=== PATIENT | male | born 1985 | race Caucasian/White ===

== ENCOUNTER 2017-02-08 20:47 | Emergency (ER) | payer BC, OTHER ==
[~2017-02-08] VITALS: Ht 185.4 cm; Wt 68.0 kg
[~2017-02-08 20:47] MED LIST: CEPH500C PO; HYDR-707 PO
[2017-02-08] MEDS ORDERED: TETANUS,DIPTH,PERTUSS P/F (BOOSTRIX) 0.5 ML VIAL IM ONE (21:45)
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
[2017-02-08] MEDS ORDERED: AMOX-358 PO (22:11)
[2017-02-08] MEDS ORDERED: HYDR-3812 PO (22:14)
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
[2017-02-08 22:28] VITALS: BP 137/88
== END 2017-02-08 22:28 | disposition home or self-care (01) ==
LOC: EDUNIT# 20:47 → ER 20:50
DX: S91.312A Laceration without foreign body, left foot, initial encounter (principal); F17.210 Nicotine dependence, cigarettes, uncomplicated; Z23 Encounter for immunization; Z87.828 Personal history of other (healed) physical injury and trauma; W26.0XXA Contact with knife, initial encounter
CPT/HCPCS: 73630; 90715

== ENCOUNTER 2017-05-19 18:26 | Emergency (ER) | payer BC ==
[~2017-05-19] VITALS: Ht 185.4 cm; Wt 63.5 kg
[~2017-05-19 18:26] MED LIST changes: +ACHD5005 PO; +AMOX-358 PO
--- NOTE | 2017-05-19 18:38 | ED Upper Extremity ---
General Chief Complaint: Laceration Stated Complaint: L FINGER LAC Source: patient Exam Limitations: no limitations History of Present Illness Date Seen by Provider: May 19, 2017 Time Seen by Provider: 18:35 Initial Comments To ER with a laceration over the dorsal aspect second knuckle left hand. This occurred just prior to arrival he was washing dishes and one of the glasses broke. Tetanus is up-to-date within the past 5 years. Onset: just prior to arrival Severity: moderate Pain/Injury Location: left 2nd finger Allergies and Home Medications Allergies Coded Allergies: No Known Allergies (Unverified Allergy, Mild, 07/01/09) Home Medications Amoxicillin/Potassium Clav 1 Each Tablet, 1 EACH PO BID Prescribed by: BRAXTON GONSALVES on 02/08/17 221 Cephalexin Monohydrate 500 Mg Capsule, 1 EACH PO QID Prescribed by: DWAYNE DUNCAN MD on 07/02/09 0225 Hydrocodone Bit/Acetaminophen 1 Each Tablet, 1 EACH PO Q 4 - 6 HR PRN Prescribed by: DWAYNE DUNCAN MD on 07/01/09 2355 Hydrocodone Bit/Acetaminophen 1 Each Tablet, 1 EACH PO Q6H PRN for BREAKTHROUGH PAIN Prescribed by: BRAXTON GONSALVES on 02/08/174 Constitutional: see HPI EENTM: see HPI Respiratory: no symptoms reported Cardiovascular: no symptoms reported Genitourinary: no symptoms reported Musculoskeletal: see HPI Skin: see HPI Psychiatric/Neurological: No Symptoms Reported Past Kptqglz-Jvaecp-Ckkhxk Hx Patient Social History Type Used: Cigarettes Recent Foreign Travel: No Contact w/Someone Who Travel: No Recent Hopitalizations: No Surgeries History of Surgeries: No Respiratory History of Respiratory Disorde: No Cardiovascular History of Cardiac Disorders: No Neurological History of Neurological Disord: No Genitourinary History of Genitourinary Disor: No Gastrointestinal History of Gastrointestinal Di: No Musculoskeletal History of Musculoskeletal Dis: No Endocrine History of Endocrine Disorders: No HEENT History of HEENT Disorders: No Cancer History of Cancer: No Psychosocial History of Psychiatric Problem: No Integumentary History of Skin or Integumenta: No Blood Transfusions History of Blood Disorders: No Physical Exam Vital Signs Vital Signs - First Documented 05/19/17 18:32 Temp 98.2 Pulse 94 Resp 18 B/P (MAP) 128/78 (95) Pulse Ox 97 O2 Delivery Room Air Capillary Refill : General Appearance: WD/WN, no apparent distress HEENT: PERRL/EOMI, normal ENT inspection Neck: non-tender, full range of motion Respiratory: no respiratory distress, no accessory muscle use Shoulder: normal inspection, non-tender Elbow/Forearm: normal inspection, non-tender, Left Wrist: Yes normal inspection, Yes non-tender Hand: normal inspection, non-tender, Left, laceration (there is a 1.5 cm laceration over the dorsal aspect MCP joint left pointer finger. Depth is to the subcutaneous cutaneous tissue, there is no evidence of extensor tendon injury. He remains distally neurovascularly intact.) Neurologic/Psychiatric: alert, normal mood/affect, oriented x 3 Skin: normal color, warm/dry Laceration Repair : Wound Location: Upper Extremities Other Wound Location Left hand Wound Length (cm): 1.5 Wound's Depth, Shape: superficial Wound Explored: clean Irrigated w/ Saline (ccs): 30 Suture: Prolene Suture Size: 4-0 Number of Sutures: 3 Progress Laceration was cleaned and irrigated with chlorhexidine and normal saline. It was then anesthetized with 2 mL of lidocaine without epinephrine. 3 simple interrupted sutures sutures were placed. The suture was 5-0 Prolene. Progress/Results/Core Measures Results/Orders Vital Signs/I&O Vital Sign - Last 12Hours 05/19/17 05/19/17 18:32 18:43 Temp 98.2 98.2 Pulse 94 94 Resp 18 18 B/P (MAP) 128/78 (95) 128/78 (95) Pulse Ox 97 97 O2 Delivery Room Air Departure Impression Impression: Primary Impression: Hand laceration Disposition: 01 HOME, SELF-CARE Condition: Stable Departure-Patient Inst. Decision time for Depature: 18:37 Referrals: KATIE NEWELL MD (PCP/Family) Primary Care Physician Patient Instructions: Laceration Repair With Stitches (DC) Add. Discharge Instructions: 1. Return to ER in 7-10 days to have the stitches removed. Keep this wound clean dry and covered until tomorrow. At that point you may allow water to run over it in the shower but do not soak it in water such as a hot tub, bath tub, swimming pool or dish sink to the stitches have been removed. Return to ER before the 7-10 day nicholas of infection such as redness or swelling or pus like drainage. TSERING BAILEY APRN May 19, 2017 18:38
[2017-05-19 18:43] VITALS: BP 128/78
== END 2017-05-19 18:49 | disposition home or self-care (01) ==
LOC: EDUNIT# 18:26 → ER 18:27
DX: S61.211A Laceration without foreign body of left index finger without damage to nail, initial encounter (principal); Y28.0XXA Contact with sharp glass, undetermined intent, initial encounter
CPT/HCPCS: 99284

== ENCOUNTER 2018-10-29 02:36 | Emergency (ER) | payer BC ==
[~2018-10-29] VITALS: Ht 185.4 cm; Wt 63.5 kg
--- OUTSIDE RECORDS SUMMARY | 2018-10-29 02:43 | XMS REPORT ---
Author Author SANDEEP THOMPSON Organization [facility] Address [address] [place] [address] Care Team Providers [employer] Chief Creative Officer Name Role Phone SANDEEP THOMPSON Unavailable PROBLEMS Type Condition ICD9-CM Code JLQ39-GG Code Onset Dates Condition Status SNOMED Code Problem [place] J30.1 Active [id number] ALLERGIES No Known Allergies ENCOUNTERS Encounter Location Date Diagnosis [facility] [address] [facility] [id number] [place] [address] Oct, [place] J30.1 IMMUNIZATIONS No Known Immunizations SOCIAL HISTORY Never Assessed REASON FOR VISIT sore throat, chest congestion, nasal drainage down the back of his throat. been sick for one day. kbullhernan PLAN OF CARE Activity Details Follow Up prn Reason: VITAL SIGNS Height 73 in 2017-10-30 Weight 142.0 lbs 2017-10-30 Temperature 98.3 degrees Fahrenheit 2017-10-30 Heart Rate 80 bpm 2017-10-30 Respiratory Rate 20 2017-10-30 BMI 18.73 kg/m2 2017-10-30 Blood pressure systolic 112 mmHg 2017-10-30 Blood pressure diastolic 70 mmHg 2017-10-30 MEDICATIONS Medication Instructions Dosage Frequency Start Date End Date Duration Status Cough Drops Menthol - Active NyQuil Active RESULTS No Results PROCEDURES No Known procedures INSTRUCTIONS MEDICATIONS ADMINISTERED No Known Medications
[2018-10-29] MEDS ORDERED: LIDOCAINE 2% VISCOUS 15 ML UDC PO ONE (03:00)
[2018-10-29] MEDS ORDERED: KETOROLAC 30 MG/ML VIAL IM ONE (03:00)
[2018-10-29] MEDS ORDERED: AMOX500C2 PO (03:03)
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
[2018-10-29 03:09] VITALS: BP 111/74
== END 2018-10-29 03:09 | disposition home or self-care (01) ==
LOC: EDUNIT# 02:36 → ER 02:39
DX: K08.89 Other specified disorders of teeth and supporting structures (principal); F17.210 Nicotine dependence, cigarettes, uncomplicated; W22.8XXA Striking against or struck by other objects, initial encounter
CPT/HCPCS: 99284

== ENCOUNTER 2021-07-05 19:32 | Emergency (ER) | payer BC ==
[~2021-07-05] VITALS: Ht 182 cm; Wt 66.0 kg
[~2021-07-05 19:32] MED LIST changes: +AMOX500C2 PO
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
[2021-07-05 20:44] VITALS: BP 132/76
== END 2021-07-05 20:47 | disposition home or self-care (01) ==
LOC: EDUNIT# 19:32 → ER 19:33
DX: S90.01XA Contusion of right ankle, initial encounter (principal); F17.290 Nicotine dependence, other tobacco product, uncomplicated; W01.198A Fall on same level from slipping, tripping and stumbling with subsequent striking against other object, initial encounter
CPT/HCPCS: 73610

== ENCOUNTER 2021-10-24 18:08 | Emergency (ER) | payer BC ==
[~2021-10-24] VITALS: Ht 185.5 cm; Wt 66.8 kg
--- NOTE | 2021-10-24 18:59 | ED Chest Pain ---
General Chief Complaint: Chest Pain Stated Complaint: L SIDE PAIN WITH BREATHING,COUGH,FEVER Nursing Triage Note: PT AMB TO ED BY POV WITH C/O CP, CONGESTION, COUGH, SOB. 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 DENIES N/V/D. Source: patient Exam Limitations: no limitations History of Present Illness Date Seen by Provider: Oct 24, 2021 Time Seen by Provider: 18:55 Initial Comments Patient presents for evaluation of chest congestion, sinus pain and left sided chest pain. 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 He denies nausea, vomiting, diarrhea. Severity/Quality: moderate Location: substernal Radiation: no radiation Activities at Onset: activity Prior CP/Workup: no prior chest pain Allergies and Home Medications Allergies Coded Allergies: No Known Allergies (Unverified Allergy, Mild, 07/01/09) Patient Home Medication List Home Medication List Reviewed: Yes Amoxicillin (Amoxicillin) 500 Mg Capsule, 500 MG PO TID Prescribed by: BRAXTON GONSALVES on 10/29/18 0303 Amoxicillin/Potassium Clav (Augmentin 875-125 Tablet) 1 Each Tablet, 1 EACH PO BID Prescribed by: BRAXTON GONSALVES on 02/08/17 2211 Cephalexin Monohydrate (Cephalexin) 500 Mg Capsule, 1 EACH PO QID Prescribed by: DWAYNE DUNCAN MD on 07/02/09 0225 Hydrocodone Bit/Acetaminophen (Lortab 5-500 Tablet) 1 Each Tablet, 1 EACH PO Q 4 - 6 HR PRN Prescribed by: DWAYNE DUNCAN MD on 07/01/09 2355 Hydrocodone Bit/Acetaminophen (Lortab 5 Mg Tablet) 1 Each Tablet, 1 EACH PO Q6H PRN for BREAKTHROUGH PAIN Prescribed by: BRAXTON GONSALVES on 02/08/17 2214 Review of Systems Review of Systems Constitutional: malaise EENTM: Nose Congestion Respiratory: Cough Cardiovascular: No Symptoms Reported Gastrointestinal: No Symptoms Reported Genitourinary: No Symptoms Reported Musculoskeletal: no symptoms reported Skin: no symptoms reported Past Cmyvrzb-Odffwj-Gvtzgw Hx Immunizations Up To Date Tetanus Booster (TDap): Less than 5yrs PED Vaccines UTD: Yes Seasonal Allergies Seasonal Allergies: No Past Medical History Surgeries: No Respiratory: No Cardiac: No Neurological: No Genitourinary: No Gastrointestinal: No Musculoskeletal: No Endocrine: No HEENT: No Cancer: No Psychosocial: No Integumentary: No Blood Disorders: No Physical Exam Vital Signs Vital Signs - First Documented 10/24/21 18:40 Temp 37.1 Pulse 86 Resp 18 B/P (MAP) 124/76 (92) Pulse Ox 97 O2 Delivery Room Air Capillary Refill : Less Than 3 Seconds Height, Weight, BMI Height: 6'1.00" Weight: 140lbs. 0oz. 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 Skin: Normal Color, Warm/Dry Procedures/Interventions Suture Size: 4-0 Progress/Results/Core Measures Results/Orders Lab Results Laboratory Tests Test 10/24/21 18:35 10/24/21 19:20 Range/Units White Blood Count 7.4 4.3-11.0 10^3/uL Red Blood Count 4.24 L 4.30-5.52 10^6/uL Hemoglobin 13.4 13.3-17.7 g/dL Hematocrit 39 L 40-54 % Mean Corpuscular Volume 92 80-99 fL Mean Corpuscular Hemoglobin 32 25-34 pg Mean Corpuscular Hemoglobin Concent 34 32-36 g/dL Red Cell Distribution Width 13.2 10.0-14.5 % Platelet Count 265 130-400 10^3/uL Mean Platelet Volume 9.5 9.0-12.2 fL Immature Granulocyte % (Auto) 0 % Neutrophils (%) (Auto) 49 42-75 % Lymphocytes (%) (Auto) 41 12-44 % Monocytes (%) (Auto) 8 0-12 % Eosinophils (%) (Auto) 1 0-10 % Basophils (%) (Auto) 1 0-10 % Neutrophils # (Auto) 3.7 1.8-7.8 10^3/uL Lymphocytes # (Auto) 3.0 1.0-4.0 10^3/uL Monocytes # (Auto) 0.6 0.0-1.0 10^3/uL Eosinophils # (Auto) 0.1 0.0-0.3 10^3/uL Basophils # (Auto) 0.0 0.0-0.1 10^3/uL Immature Granulocyte # (Auto) 0.0 0.0-0.1 10^3/uL Sodium Level 142 135-145 MMOL/L Potassium Level 3.7 3.6-5.0 MMOL/L Chloride Level 108 H 98-107 MMOL/L Carbon Dioxide Level 23 21-32 MMOL/L Anion Gap 11 5-14 MMOL/L Blood Urea Nitrogen 11 7-18 MG/DL Creatinine 0.84 0.60-1.30 MG/DL Estimat Glomerular Filtration Rate 117 BUN/Creatinine Ratio 13 Glucose Level 92 70-105 MG/DL Calcium Level 9.1 8.5-10.1 MG/DL Corrected Calcium 8.7 8.5-10.1 MG/DL Total Bilirubin 0.9 0.1-1.0 MG/DL Aspartate Amino Transf (AST/SGOT) 21 5-34 U/L Alanine Aminotransferase (ALT/SGPT) 17 0-55 U/L Alkaline Phosphatase 50 40-136 U/L Troponin I < 0.028 <0.028 NG/ML Total Protein 7.1 6.4-8.2 GM/DL Albumin 4.5 3.2-4.5 GM/DL Influenza Type A (RT-PCR) Not Detected Not Detecte Influenza Type B (RT-PCR) Not Detected Not Detecte SARS-CoV-2 RNA (RT-PCR) Not Detected Not Detecte My Orders Orders - STACEY RODRIGUEZ Chest Pa/Lat (2 View) (10/24/21 18:44) Ed Iv/Invasive Line Start (10/24/21 18:53) Cbc With Automated Diff (10/24/21 18:53) Comprehensive Metabolic Panel (10/24/21 18:53) Troponin I Maged (10/24/21 18:53) Covid 19 Inhouse Test (10/24/21 18:53) Influenza A And B By Pcr (10/24/21 18:53) Vital Signs/I&O 10/24/21 18:40 Temp 37.1 Pulse 86 Resp 18 B/P (MAP) 124/76 (92) Pulse Ox 97 O2 Delivery Room Air Blood Pressure Mean: 92 Departure Communication (Admissions) Patient is afebrile, nontoxic and in no distress. His chest x-ray and lab work is reassuring. I do not feel that this is an acute cardiac event. No evidence or suspicion of PE, pneumothorax, hemothorax. 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 Impression Primary Impression: Intercostal muscle strain Disposition: 01 HOME, SELF-CARE Condition: Stable Departure-Patient Inst. Decision time for Depature: 20:00 Referrals: KATIE NEWELL MD (PCP/Family) Primary Care Physician Patient Instructions: Muscle Strain (DC) Scripts Diclofenac Sodium (Diclofenac Sodium) 75 Mg Tablet. 75 MG PO BID for 7 Days, #14 TAB Prov: STACEY RODRIGUEZ 10/24/21 Work/School Note: Work Release Form Date Seen in the Emergency Department: Oct 24, 2021 Return to Work: Oct 26, 2021 Restrictions: No Restrictions STACEY RODRIGUEZ Oct 24, 2021 18:59
[2021-10-24 19:00] LABS: BASOPHILS % (AUTO) 1 % (0-10); EOSINOPHILS # (AUTO) 0.1 10^3/uL (0.0-0.3); EOSINOPHILS % (AUTO) 1 % (0-10); HEMATOCRIT 39 % (40-54); HEMOGLOBIN 13.4 g/dL (13.3-17.7); LYMPHOCYTES % (AUTO) 41 % (12-44); MEAN CORPUSCULAR HEMOGLOBIN 32 pg (25-34); MEAN CORPUSCULAR HGB CONC 34 g/dL (32-36); MEAN CORPUSCULAR VOLUME 92 fL (80-99); MEAN PLATELET VOLUME 9.5 fL (9.0-12.2); MONOCYTES # (AUTO) 0.6 10^3/uL (0.0-1.0); MONOCYTES % (AUTO) 8 % (0-12); NEUTROPHILS # (AUTO) 3.7 10^3/uL (1.8-7.8); NEUTROPHILS % (AUTO) 49 % (42-75); PLATELET COUNT 265 10^3/uL (130-400); WHITE BLOOD COUNT 7.4 10^3/uL (4.3-11.0)
[2021-10-24 19:03] LABS: ALBUMIN 4.5 GM/DL (3.2-4.5); CHLORIDE 108 MMOL/L (98-107); POTASSIUM 3.7 MMOL/L (3.6-5.0); SODIUM 142 MMOL/L (135-145)
[2021-10-24 19:04] LABS: CALCIUM 9.1 MG/DL (8.5-10.1)
[2021-10-24 19:05] LABS: GLUCOSE 92 MG/DL (70-105); TOTAL PROTEIN 7.1 GM/DL (6.4-8.2)
[2021-10-24 19:06] LABS: CARBON DIOXIDE 23 MMOL/L (21-32)
[2021-10-24 19:07] LABS: BILIRUBIN,TOTAL 0.9 MG/DL (0.1-1.0)
[2021-10-24 19:09] LABS: ALKALINE PHOSPHATASE 50 U/L (40-136); CREATININE SERUM 0.84 MG/DL (0.60-1.30); GFR ESTIMATED 117
[2021-10-24 19:10] LABS: BUN/CREATININE RATIO 13
[2021-10-24 19:12] LABS: ALANINE AMINOTRANSFERASE 17 U/L (0-55)
--- NOTE | 2021-10-24 19:48 | Diagnostic Imaging Report ---
INDICATION: Chest pain and shortness of breath. COMPARISON: None available. FINDINGS: The lungs appear clear without focal airspace opacities or consolidation. There are no findings of an effusion. There is no evidence of a pneumothorax. Heart size and mediastinal contours appear appropriate. Pulmonary vascularity appears within normal limits. There is no acute or suspicious osseous abnormality demonstrated. IMPRESSION: No radiographic evidence of an acute cardiopulmonary process. Dictated by: Dictated on workstation # [id number]
[2021-10-24] MEDS ORDERED: KETOROLAC 30 MG/ML VIAL IV ONE (20:00)
[2021-10-24] MEDS ORDERED: DICL75TA2 PO (20:01)
[2021-10-24 20:29] VITALS: BP 118/76
== END 2021-10-24 20:30 | disposition home or self-care (01) ==
LOC: EDUNIT# 18:08 → ER 18:10
DX: S29.011A Strain of muscle and tendon of front wall of thorax, initial encounter (principal); Z20.822 Contact with and (suspected) exposure to COVID-19; X58.XXXA Exposure to other specified factors, initial encounter
CPT/HCPCS: 36415; 71046; 80053; 84484; 85025; 87636

== ENCOUNTER 2021-10-25 23:14 | Emergency (ER) | payer BC ==
[~2021-10-25] VITALS: Ht 185.4 cm; Wt 68.4 kg
[~2021-10-25 23:14] MED LIST changes: +DICL75TA2 PO
[2021-10-25] MEDS ORDERED: ASPIRIN 81 MG CHEW (CHILDREN'S ASA) PO ONE (23:30)
[2021-10-25] MEDS ORDERED: NITROGLYCERIN 0.4 MG SL TABS BTL 25'S SL PRN (23:30)
[2021-10-25 23:32] LABS: BASOPHILS # (AUTO) 0.1 10^3/uL (0.0-0.1); BASOPHILS % (AUTO) 1 % (0-10); EOSINOPHILS # (AUTO) 0.2 10^3/uL (0.0-0.3); EOSINOPHILS % (AUTO) 2 % (0-10); HEMATOCRIT 40 % (40-54); HEMOGLOBIN 13.6 g/dL (13.3-17.7); LYMPHOCYTES # (AUTO) 5.4 10^3/uL (1.0-4.0); LYMPHOCYTES % (AUTO) 59 % (12-44); MEAN CORPUSCULAR HEMOGLOBIN 32 pg (25-34); MEAN CORPUSCULAR HGB CONC 34 g/dL (32-36); MEAN CORPUSCULAR VOLUME 92 fL (80-99); MEAN PLATELET VOLUME 9.1 fL (9.0-12.2); MONOCYTES # (AUTO) 0.8 10^3/uL (0.0-1.0); MONOCYTES % (AUTO) 9 % (0-12); NEUTROPHILS # (AUTO) 2.8 10^3/uL (1.8-7.8); NEUTROPHILS % (AUTO) 30 % (42-75); PLATELET COUNT 285 10^3/uL (130-400); WHITE BLOOD COUNT 9.3 10^3/uL (4.3-11.0)
[2021-10-25 23:36] LABS: SMEAR SCAN COMMENT YES
[2021-10-25 23:52] LABS: ALANINE AMINOTRANSFERASE 18 U/L (0-55); ALBUMIN 4.6 GM/DL (3.2-4.5); ALKALINE PHOSPHATASE 48 U/L (40-136); AMYLASE 51 U/L (25-125); BILIRUBIN,TOTAL 0.6 MG/DL (0.1-1.0); BUN/CREATININE RATIO 13; CALCIUM 9.7 MG/DL (8.5-10.1); CARBON DIOXIDE 20 MMOL/L (21-32); CHLORIDE 110 MMOL/L (98-107); CREATINE KINASE 270 U/L (30-200); CREATININE SERUM 1.07 MG/DL (0.60-1.30); GFR ESTIMATED 93; GLUCOSE 115 MG/DL (70-105); LIPASE 21 U/L (8-78); MAGNESIUM 1.8 MG/DL (1.6-2.4); POTASSIUM 3.8 MMOL/L (3.6-5.0); SODIUM 144 MMOL/L (135-145); TOTAL PROTEIN 7.3 GM/DL (6.4-8.2)
[2021-10-25 23:56] LABS: INR 0.9 (0.8-1.4); PROTHROMBIN TIME PATIENT 12.6 SEC (12.2-14.7)
[2021-10-26 00:02] LABS: CREATINE KINASE MB 6.6 NG/ML (<6.6)
[2021-10-26 00:08] LABS: AMPHETAMINE SCREEN, URINE NEGATIVE (NEGATIVE); BARBITURATE SCREEN URINE NEGATIVE (NEGATIVE); BENZODIAZEPINES SCREEN URINE NEGATIVE (NEGATIVE); CANNABINOID SCREEN, URINE NEGATIVE (NEGATIVE); COCAINE SCREEN URINE NEGATIVE (NEGATIVE); METHADONE STAT NEGATIVE (NEGATIVE); OPIATE SCREEN URINE NEGATIVE (NEGATIVE); OXYCODONE STAT NEGATIVE (NEGATIVE); PROPOXYPHENE STAT NEGATIVE (NEGATIVE); TRICYCLIC ANTIDEPRESSANTS SCRE NEGATIVE (NEGATIVE)
--- NOTE | 2021-10-26 00:17 | ED Cardiac General ---
History of Present Illness General Chief Complaint: Chest Pain Stated Complaint: CP Nursing Triage Note: PT ARRIVAL TO ER WITH COMPLAINT OF CHEST PAIN X15 MINUTES. PT STATES THAT HE WAS LAYING IN BED AND WAS SUDDENLY HIT WITH WHAT HE DESCRIBED "12 GAUGE RECINOS SHOT FEELING TO CHEST". WHEN ASKED TO DESCRIBE IT DIFFERENTLY, PATIENT STATES "FEEL LIKE IM BEING KICKED IN CHEST BY A HORSE". PT WAS SEEN LAST NIGHT FOR SAME COMPLAINT AND DISCHARGED. PT IS EXTREMELY ANXIOUS AND UNABLE TO SIT STILL IN ROOM. PT IS SINGING A SONG ABOUT A UNICORN, AND ASKS FOR HIS PHONE SO HE CAN PLAY UNICORN MUSIC TO CALM HIM DOWN. PAIN AT A 10/03. Source: patient History of Present Illness Date Seen by Provider: Oct 25, 2021 Allergies and Home Medications Allergies Coded Allergies: No Known Allergies (Unverified Allergy, Mild, 07/01/09) Patient Home Medication List Amoxicillin (Amoxicillin) 500 Mg Capsule, 500 MG PO TID Prescribed by: BRAXTON GONSALVES on 10/29/18 0303 Amoxicillin/Potassium Clav (Augmentin 875-125 Tablet) 1 Each Tablet, 1 EACH PO BID Prescribed by: BRAXTON GONSALVES on 02/08/17 221 Cephalexin Monohydrate (Cephalexin) 500 Mg Capsule, 1 EACH PO QID Prescribed by: DWAYNE DUNCAN MD on 07/02/09 0225 Diclofenac Sodium (Diclofenac Sodium) 75 Mg Tablet.dr, 75 MG PO BID Prescribed by: Rafael Mckenzie on 10/24/212000 Hydrocodone Bit/Acetaminophen (Lortab 5-500 Tablet) 1 Each Tablet, 1 EACH PO Q 4 - 6 HR PRN Prescribed by: DWAYNE DUNCAN MD on 07/01/09 2355 Hydrocodone Bit/Acetaminophen (Lortab 5 Mg Tablet) 1 Each Tablet, 1 EACH PO Q6H PRN for BREAKTHROUGH PAIN Prescribed by: BRAXTON GONSALVES on 02/08/17 221 Past Tixbnxp-Vvzyra-Mxwmek Hx Patient Social History Tobacco Use?: Yes Tobacco type used: Cigarettes Smoking Status: Current Everyday Smoker Use of E-Cig and/or Vaping dev: Yes E-Cig or Vaping type used: Nicotine Use of E-Cig and/or Vaping Bashir: Current Everyday User Substance use?: No Alcohol Use?: No Pt feels they are or have been: No Immunizations Up To Date Tetanus Booster (TDap): Less than 5yrs PED Vaccines UTD: Yes Influenza Vaccine Up-to-Date: No; Not Current Seasonal Allergies Seasonal Allergies: No Past Medical History Surgeries: No Respiratory: No Cardiac: No Neurological: No Genitourinary: No Gastrointestinal: No Musculoskeletal: No Endocrine: No HEENT: No Cancer: No Psychosocial: No Integumentary: No Blood Disorders: No Physical Exam Vital Signs Vital Signs - First Documented 10/25/21 23:30 Temp 36.9 Pulse 96 Resp 22 B/P (MAP) 130/73 (92) Pulse Ox 100 O2 Delivery Room Air Capillary Refill : Less Than 3 Seconds Height, Weight, BMI Height: 6'1.00" Weight: 140lbs. 0oz. 63.394962ep; 19.00 BMI Method:Stated Procedures/Interventions Suture Size: 4-0 Progress/Results/Core Measures Results/Orders Lab Results Laboratory Tests Test 10/25/21 23:26 10/25/21 23:45 Range/Units White Blood Count 9.3 4.3-11.0 10^3/uL Red Blood Count 4.32 4.30-5.52 10^6/uL Hemoglobin 13.6 13.3-17.7 g/dL Hematocrit 40 40-54 % Mean Corpuscular Volume 92 80-99 fL Mean Corpuscular Hemoglobin 32 25-34 pg Mean Corpuscular Hemoglobin Concent 34 32-36 g/dL Red Cell Distribution Width 13.0 10.0-14.5 % Platelet Count 285 130-400 10^3/uL Mean Platelet Volume 9.1 9.0-12.2 fL Immature Granulocyte % (Auto) 0 % Neutrophils (%) (Auto) 30 L 42-75 % Lymphocytes (%) (Auto) 59 H 12-44 % Monocytes (%) (Auto) 9 0-12 % Eosinophils (%) (Auto) 2 0-10 % Basophils (%) (Auto) 1 0-10 % Neutrophils # (Auto) 2.8 1.8-7.8 10^3/uL Lymphocytes # (Auto) 5.4 H 1.0-4.0 10^3/uL Monocytes # (Auto) 0.8 0.0-1.0 10^3/uL Eosinophils # (Auto) 0.2 0.0-0.3 10^3/uL Basophils # (Auto) 0.1 0.0-0.1 10^3/uL Immature Granulocyte # (Auto) 0.0 0.0-0.1 10^3/uL Prothrombin Time 12.6 12.2-14.7 SEC INR Comment 0.9 0.8-1.4 Activated Partial Thromboplast Time 27 24-35 SEC D-Dimer <= 0.27 0.00-0.49 UG/ML Sodium Level 144 135-145 MMOL/L Potassium Level 3.8 3.6-5.0 MMOL/L Chloride Level 110 H 98-107 MMOL/L Carbon Dioxide Level 20 L 21-32 MMOL/L Anion Gap 14 5-14 MMOL/L Blood Urea Nitrogen 14 7-18 MG/DL Creatinine 1.07 0.60-1.30 MG/DL Estimat Glomerular Filtration Rate 93 BUN/Creatinine Ratio 13 Glucose Level 115 H 70-105 MG/DL Calcium Level 9.7 8.5-10.1 MG/DL Corrected Calcium 8.5-10.1 MG/DL Magnesium Level 1.8 1.6-2.4 MG/DL Total Bilirubin 0.6 0.1-1.0 MG/DL Aspartate Amino Transf (AST/SGOT) 18 5-34 U/L Alanine Aminotransferase (ALT/SGPT) 18 0-55 U/L Alkaline Phosphatase 48 40-136 U/L Total Creatine Kinase 270 H 30-200 U/L Creatine Kinase MB 6.6 *H <6.6 NG/ML Myoglobin 49.4 10.0-92.0 NG/ML Troponin I < 0.028 <0.028 NG/ML B-Type Natriuretic Peptide < 10.0 <100.0 PG/ML Total Protein 7.3 6.4-8.2 GM/DL Albumin 4.6 H 3.2-4.5 GM/DL Amylase Level 51 25-125 U/L Lipase 21 8-78 U/L Serum Alcohol < 10 <10 MG/DL Smear Scan YES Urine Opiates Screen NEGATIVE NEGATIVE Urine Oxycodone Screen NEGATIVE NEGATIVE Urine Methadone Screen NEGATIVE NEGATIVE Urine Propoxyphene Screen NEGATIVE NEGATIVE Urine Barbiturates Screen NEGATIVE NEGATIVE Ur Tricyclic Antidepressants Screen NEGATIVE NEGATIVE Urine Phencyclidine Screen NEGATIVE NEGATIVE Urine Amphetamines Screen NEGATIVE NEGATIVE Urine Methamphetamines Screen NEGATIVE NEGATIVE Urine Benzodiazepines Screen NEGATIVE NEGATIVE Urine Cocaine Screen NEGATIVE NEGATIVE Urine Cannabinoids Screen NEGATIVE NEGATIVE My Orders Orders - JOCE,KATIE K DO Ekg Tracing (10/25/21 23:19) Continuous Ekg Monitoring (10/25/21 23:19) Cbc With Automated Diff (10/25/21 23:22) Magnesium (10/25/21 23:22) Chest 1 View, Ap/Pa Only (10/25/21 23:22) Ekg Tracing (10/25/21 23:22) Comprehensive Metabolic Panel (10/25/21 23:22) Myoglobin Serum (10/25/21 23:22) Protime With Inr (10/25/21 23:22) Partial Thromboplastin Time (10/25/21 23:22) O2 (10/25/21 23:22) Monitor-Rhythm Ecg Trace Only (10/25/21 23:22) Ed Iv/Invasive Line Start (10/25/21 23:22) Creatine Kinase (10/25/21 23:22) Creatine Kinase Mb (10/25/21 23:22) Lipase (10/25/21 23:22) Amylase (10/25/21 23:22) Bnp [place] (10/25/21 23:22) Fibrin Degradation Products (10/25/21 23:22) Troponin I Maged (10/25/21 23:22) Nitroglycerin 0.4 Mg Btl 25's (Nitrostat (10/25/21 23:30) Aspirin Chewable Tablet (Baby Aspirin Ch (10/25/21 23:30) Alcohol (10/25/21 23:22) Drug Screen Stat (Urine) (10/25/21 23:22) Medications Given in ED Current Medications Medications Dose Ordered Sig/Crystal Route Start Time Stop Time Status Last Admin Dose Admin Aspirin 324 mg ONCE ONCE PO 10/25/21 23:30 10/25/21 23:31 DC 10/25/21 23:44 324 MG Nitroglycerin 0.4 mg UD PRN SL 10/25/21 23:30 10/25/21 23:44 0.4 MG Vital Signs/I&O 10/25/21 23:30 Temp 36.9 Pulse 96 Resp 22 B/P (MAP) 130/73 (92) Pulse Ox 100 O2 Delivery Room Air Blood Pressure Mean: 92 Departure Impression Primary Impression: Chest wall pain Disposition: 01 HOME, SELF-CARE Condition: Stable Departure-Patient Inst. Decision time for Depature: 00:30 Referrals: KATIE NEWELL MD (PCP/Family) Primary Care Physician Patient Instructions: Chest Pain (DC) Add. Discharge Instructions: TYLENOL YOUR PRESCRIPTION DICLOFENAC NEEDED FOR PAIN DO NOT TAKE ANY OVER THE COUNTER COLD/ALLERGY MEDICATIONS FOLLOW UP WITH DR. NEWELL IN 2-3 DAYS FOR FURTHER CARE All discharge instructions reviewed with patient and/or family. Voiced und erstanding. KATIE HOBSON DO Oct 26, 2021 00:17
[2021-10-26 00:46] VITALS: BP 112/69
--- NOTE | 2021-10-26 07:20 | Diagnostic Imaging Report ---
INDICATION: Chest pain. FINDINGS: Portable chest. The lungs are well-aerated and clear. Heart is not enlarged. No pneumothorax or pleural effusion. No bony abnormalities. IMPRESSION: Normal portable chest. Dictated by: Dictated on workstation # [id number]
== END 2021-10-26 01:02 | disposition home or self-care (01) ==
LOC: EDUNIT# 23:14 → ER 23:17
DX: R07.89 Other chest pain (principal); F17.210 Nicotine dependence, cigarettes, uncomplicated; F17.290 Nicotine dependence, other tobacco product, uncomplicated; Z28.310 Unvaccinated for COVID-19
CPT/HCPCS: 71045; 80053; 80306; 82150; 82550; 82553; 83690; 83735; 83874; 83880; 84484; 85025; 85379; 85610; 85730; 93005; 93041; 99284; G0480; 36415; 80320

== ENCOUNTER → 2021-10-28 | Outpatient (CLI) | payer BC | LOC: CARD 08:14 | PROVIDERS: ATTEND Nurse Practitioner Family | DX: R00.2 Palpitations (principal); R07.89 Other chest pain | CPT/HCPCS: 93225; 93226 ==

== ENCOUNTER 2021-11-04 17:28 | Emergency (ER) | payer BC ==
[~2021-11-04] VITALS: Ht 185.5 cm; Wt 67.0 kg
--- NOTE | 2021-11-04 17:52 | ED Neurological Problem ---
General Stated Complaint: RAPID HEART RATE / LEFT SIDE OF FACIAL NUMBNESS Source: patient Exam Limitations: no limitations (LAKESHIA ACEVEDO MD) History of Present Illness Date Seen by Provider: Nov 04, 2021 Time Seen by Provider: 17:40 Initial Comments Patient is a 36-year-old who presents to the emergency department today with a chief complaint of 1 hour of left-sided facial "numbness" and palpitations/rapid heartbeat. Patient states that about 1640 today he was reclining on his couch playing video games when he had a sudden onset of the left side of his face feeling numb from his forehead down to his left side of his neck. No extremity numbness weakness or tingling. He complains of increased sensation to the left foot. He denies any complaints related to speech difficulties or swallowing difficulties. No vision changes, hearing changes. No headache. No recent illnesses such as fevers, chills, cough or congestion. He had COVID in the beginning of September and did take around Paxlovid. He quit smoking 4 months ago. His only daily medication is an antidepressant. He states the feeling of "numbness" is still persisting although improved. No chest pain. No current palpitations. He states that he feels a little short of breath. He states that he has a follow-up appointment with Dr. Corbin tomorrow regarding "heart problems". He states he has been quite fatigued over the last week and "bedridden". Any exertion causes him to feel short of breath. Denies recreational drug use or daily alcohol. No family history of early coronary artery disease or stroke. All other review of systems reviewed and negative except as stated. Timing/Duration: 1 hour Severity: moderate Associated Symptoms: other (numbness in face - left side) (LAKESHIA ACEVEDO MD) Allergies and Home Medications Allergies Coded Allergies: No Known Allergies (Unverified Allergy, Mild, 07/01/09) Patient Home Medication List Home Medication List Reviewed: Yes (LAKESHIA ACEVEDO MD) Amoxicillin (Amoxicillin) 500 Mg Capsule, 500 MG PO TID Prescribed by: BRAXTON GONSALVES on 10/29/18 0303 Amoxicillin/Potassium Clav (Augmentin 875-125 Tablet) 1 Each Tablet, 1 EACH PO BID Prescribed by: BRAXTON GONSALVES on 02/08/17 2211 Cephalexin Monohydrate (Cephalexin) 500 Mg Capsule, 1 EACH PO QID Prescribed by: DWAYNE DUNCAN MD on 07/02/09224 Diclofenac Sodium (Diclofenac Sodium) 75 Mg Tablet.dr, 75 MG PO BID Prescribed by: Rafael Mckenzie on 10/24/212000 Hydrocodone Bit/Acetaminophen (Lortab 5-500 Tablet) 1 Each Tablet, 1 EACH PO Q 4 - 6 HR PRN Prescribed by: DWAYNE DUNCAN MD on 07/01/092354 Hydrocodone Bit/Acetaminophen (Lortab 5 Mg Tablet) 1 Each Tablet, 1 EACH PO Q6H PRN for BREAKTHROUGH PAIN Prescribed by: BRAXTON GONSALVES on 02/08/172213 Review of Systems Review of Systems Constitutional: see HPI Eyes: No Symptoms Reported Ears, Nose, Mouth, Throat: no symptoms reported Respiratory: short of breath Cardiovascular: palpitations Gastrointestinal: no symptoms reported Genitourinary: no symptoms reported Musculoskeletal: no symptoms reported Skin: no symptoms reported Psychiatric/Neurological: Numbness (left face) (LAKESHIA ACEVEDO MD) All Other Systems Reviewed Negative Unless Noted: Yes (LAKESHIA ACEVEDO MD) Past Heupmcd-Ivlstu-Kmhrnu Hx Immunizations Up To Date Tetanus Booster (TDap): Less than 5yrs PED Vaccines UTD: Yes (LAKESHIA ACEVEDO MD) Seasonal Allergies Seasonal Allergies: No (LAKESHIA ACEVEDO MD) Past Medical History Surgeries: No Respiratory: No Cardiac: No Neurological: No Genitourinary: No Gastrointestinal: No Musculoskeletal: No Endocrine: No HEENT: No Cancer: No Psychosocial: No Integumentary: No Blood Disorders: No (LAKESHIA ACEVEDO MD) Physical Exam Vital Signs Vital Signs - First Documented 11/04/21 17:35 Temp 36.8 Pulse 65 Resp 24 B/P (MAP) 121/73 (89) Pulse Ox 99 O2 Delivery Room Air (JOCE,KATIE K DO) Vital Signs Capillary Refill : (LAKESHIA ACEVEDO MD) Height, Weight, BMI Height: 6'1.00" Weight: 140lbs. 0oz. 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, no motor/sensory deficits, alert, normal mood/affect, oriented x 3; No abnormal cerebellar tests (normal heel to esparza, normal finger to nose.) Crainal Nerves: normal hearing, normal speech, PERRL Coordination/Gait: normal finger to nose, negative Romberg's sign Motor/Sensory: no motor deficit, no sensory deficit, no pronator drift Skin: normal color, warm/dry (LAKESHIA ACEVEDO MD) Procedures/Interventions Suture Size: 4-0 (LAKESHIA ACEVEDO MD) Progress/Results/Core Measures Results/Orders Lab Results Laboratory Tests Test 11/04/21 17:53 11/04/21 18:27 Range/Units White Blood Count 7.3 4.3-11.0 10^3/uL Red Blood Count 4.70 4.30-5.52 10^6/uL Hemoglobin 14.7 13.3-17.7 g/dL Hematocrit 43 40-54 % Mean Corpuscular Volume 90 80-99 fL Mean Corpuscular Hemoglobin 31 25-34 pg Mean Corpuscular Hemoglobin Concent 35 32-36 g/dL Red Cell Distribution Width 12.3 10.0-14.5 % Platelet Count 273 130-400 10^3/uL Mean Platelet Volume 9.3 9.0-12.2 fL Immature Granulocyte % (Auto) 0 % Neutrophils (%) (Auto) 42 42-75 % Lymphocytes (%) (Auto) 46 H 12-44 % Monocytes (%) (Auto) 9 0-12 % Eosinophils (%) (Auto) 2 0-10 % Basophils (%) (Auto) 1 0-10 % Neutrophils # (Auto) 3.1 1.8-7.8 10^3/uL Lymphocytes # (Auto) 3.3 1.0-4.0 10^3/uL Monocytes # (Auto) 0.7 0.0-1.0 10^3/uL Eosinophils # (Auto) 0.2 0.0-0.3 10^3/uL Basophils # (Auto) 0.0 0.0-0.1 10^3/uL Immature Granulocyte # (Auto) 0.0 0.0-0.1 10^3/uL D-Dimer <= 0.27 0.00-0.49 UG/ML Sodium Level 141 135-145 MMOL/L Potassium Level 3.9 3.6-5.0 MMOL/L Chloride Level 104 98-107 MMOL/L Carbon Dioxide Level 24 21-32 MMOL/L Anion Gap 13 5-14 MMOL/L Blood Urea Nitrogen 13 7-18 MG/DL Creatinine 0.93 0.60-1.30 MG/DL Estimat Glomerular Filtration Rate 111 BUN/Creatinine Ratio 14 Glucose Level 100 70-105 MG/DL Calcium Level 9.7 8.5-10.1 MG/DL TSH [place] Testing 1.58 0.35-4.94 UIU/ML Urine Color YELLOW Urine Clarity CLEAR Urine pH 7.5 5-9 Urine Specific [place] 1.010 L 1.016-1.022 Urine Protein NEGATIVE NEGATIVE Urine Glucose (UA) NEGATIVE NEGATIVE Urine Ketones NEGATIVE NEGATIVE Urine Nitrite NEGATIVE NEGATIVE Urine Bilirubin NEGATIVE NEGATIVE Urine Urobilinogen 0.2 < = 1.0 MG/DL Urine Leukocyte Esterase TRACE H NEGATIVE Urine RBC (Auto) NEGATIVE NEGATIVE Urine RBC NONE /HPF Urine WBC 0-2 /HPF Urine Crystals PRESENT H /LPF Urine Amorphous Sediment 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 H /LPF Urine Bacteria TRACE /HPF Urine Casts NONE /LPF Urine Mucus NEGATIVE /LPF Urine Culture Indicated NO Urine Opiates Screen NEGATIVE NEGATIVE Urine Oxycodone Screen NEGATIVE NEGATIVE Urine Methadone Screen NEGATIVE NEGATIVE Urine Propoxyphene Screen NEGATIVE NEGATIVE Urine Barbiturates Screen NEGATIVE NEGATIVE Ur Tricyclic Antidepressants Screen NEGATIVE NEGATIVE Urine Phencyclidine Screen NEGATIVE NEGATIVE Urine Amphetamines Screen NEGATIVE NEGATIVE Urine Methamphetamines Screen NEGATIVE NEGATIVE Urine Benzodiazepines Screen NEGATIVE NEGATIVE Urine Cocaine Screen NEGATIVE NEGATIVE Urine Cannabinoids Screen NEGATIVE NEGATIVE (KATIE HOBSON DO) My Orders Orders - KATIE HOBSON DO Ct Head Wo-R/O Stroke (11/04/21 18:09) Drug Screen Stat (Urine) (11/04/21 18:12) Thyroid Analyzer (11/04/21 18:12) Ua Culture If Indicated (11/04/21 18:12) (KATIE HOBSON DO) Vital Signs/I&O 11/04/21 11/04/21 17:35 19:25 Temp 36.8 Pulse 65 60 Resp 24 25 B/P (MAP) 121/73 (89) 112/77 Pulse Ox 99 98 O2 Delivery Room Air Room Air (KATIE HOBSON DO) Progress Progress Note : Progress Note 1800--ASSUMED CARE FROM DR. ACEVEDO. TEST RESULTS PENDING. 185--REVIEWED TEST RESULTS WITH PT, VITALS ARE STABLE, HR IN 60'S AND IS NSR ( PT STATES HE STILL FEELS LIKE HIS HEART IS RACING--REASSURANCE GIVEN TO PT), NO ARRHYTHMIAS AT ANY TIME. PT STATES FACIAL NUMBNESS IS ESSENTIALLY GONE AT THIS TIME. PT HAS AN APPOINTMENT WITH DR. CORBIN'S LEAD NET SOFTWARE DEVELOPER TOMORROW MORNING FOR FOLLOW UP AFTER VISIT LAST WEEK--WORE A 48 HOUR HOLTER MONITOR (KATIE HOBSON DO) Initial ECG Impression Date: Nov 04, 2021 Initial ECG Impression Time: 18:03 Initial ECG Rate: 59 Initial ECG Rhythm: Normal Sinus (KATIE HOBSON DO) Diagnostic Imaging Comments CXR--PER RADIOLOGIST REPORT FINDINGS: The heart size, mediastinal configuration, and pulmonary vascularity are within normal limits. There is no pleural effusion, pneumothorax, or pneumonia. The osseous structures are unremarkable. IMPRESSION: No acute cardiopulmonary abnormality. CT HEAD--PER RADIOLOGIST REPORT AT 1849 FINDINGS: The ventricles and cortical sulci are normal in size and contour. There is no midline shift or mass-effect. No acute intra-axial hemorrhage is seen. There are no abnormal areas of increased or decreased density to suggest acute hemorrhage or edema. No extra-axial masses or collections are present. The bony calvarium is intact. The visualized paranasal sinuses are unremarkable. The mastoid air cells are clear. IMPRESSION: No acute intracranial abnormality. No CT evidence of mass, acute infarct or intracranial hemorrhage. Reviewed: Reviewed by Me (KATIE HOBSON DO) Departure Impression Primary Impression: TRANSIENT LEFT FACIAL PARESTHESIA Additional Impressions: SUBJECTIVE PALPITATIONS Anxiety Disposition: 01 HOME, SELF-CARE Condition: Improved Departure-Patient Inst. Decision time for Depature: 19:00 (KATIE HOBSON DO) Referrals: JAYLIN CORBIN MD, LISA A MD (PCP/Family) Primary Care Physician Patient Instructions: Anxiety, Adult ED, Palpitations (DC), Paresthesia (DC) Add. Discharge Instructions: NO CAFFEINE OR ANY ENERGY DRINKS OR STIMULANTS KEEP YOUR APPOINTMENT WITH DR. CORBIN'S OFFICE TOMORROW SCHEDULED RETURN TO ER IF SYMPTOMS WORSEN LAKESHIA ACEVEDO MD Nov 04, 2021 17:52 KATIE HOBSON DO Nov 04, 2021 18:26
[2021-11-04 18:00] LABS: BASOPHILS % (AUTO) 1 % (0-10); EOSINOPHILS # (AUTO) 0.2 10^3/uL (0.0-0.3); EOSINOPHILS % (AUTO) 2 % (0-10); HEMATOCRIT 43 % (40-54); HEMOGLOBIN 14.7 g/dL (13.3-17.7); LYMPHOCYTES # (AUTO) 3.3 10^3/uL (1.0-4.0); LYMPHOCYTES % (AUTO) 46 % (12-44); MEAN CORPUSCULAR HEMOGLOBIN 31 pg (25-34); MEAN CORPUSCULAR HGB CONC 35 g/dL (32-36); MEAN CORPUSCULAR VOLUME 90 fL (80-99); MEAN PLATELET VOLUME 9.3 fL (9.0-12.2); MONOCYTES # (AUTO) 0.7 10^3/uL (0.0-1.0); MONOCYTES % (AUTO) 9 % (0-12); NEUTROPHILS # (AUTO) 3.1 10^3/uL (1.8-7.8); NEUTROPHILS % (AUTO) 42 % (42-75); PLATELET COUNT 273 10^3/uL (130-400); WHITE BLOOD COUNT 7.3 10^3/uL (4.3-11.0)
--- NOTE | 2021-11-04 18:12 | Diagnostic Imaging Report ---
INDICATION: Shortness of breath. COMPARISON: Prior examination from 10/25/2021. FINDINGS: The heart size, mediastinal configuration, and pulmonary vascularity are within normal limits. There is no pleural effusion, pneumothorax, or pneumonia. The osseous structures are unremarkable. IMPRESSION: No acute cardiopulmonary abnormality. Dictated by: Dictated on workstation # [id number]
[2021-11-04 18:22] LABS: CALCIUM 9.7 MG/DL (8.5-10.1); CREATININE SERUM 0.93 MG/DL (0.60-1.30); POTASSIUM 3.9 MMOL/L (3.6-5.0)
[2021-11-04 18:33] LABS: BILIRUBIN,URINE NEGATIVE (NEGATIVE); CLARITY,URINE CLEAR; COLOR,URINE YELLOW; GLUCOSE, URINE (UA) NEGATIVE (NEGATIVE); KETONES,URINE NEGATIVE (NEGATIVE); LEUKOCYTE ESTERASE ,URINE TRACE (NEGATIVE); NITRITE,URINE NEGATIVE (NEGATIVE); PH,URINE 7.5 (5-9); PROTEIN,URINE NEGATIVE (NEGATIVE)
--- NOTE | 2021-11-04 18:46 | Diagnostic Imaging Report ---
INDICATION: Shortness of air. Tachycardia. Paresthesias. TECHNIQUE: Routine non contrast-enhanced axial images were obtained from the skull base to the vertex. Auto Exposure Controls were utilized during the CT exam to meet ALARA standards for radiation dose reduction COMPARISON: None. FINDINGS: The ventricles and cortical sulci are normal in size and contour. There is no midline shift or mass-effect. No acute intra-axial hemorrhage is seen. There are no abnormal areas of increased or decreased density to suggest acute hemorrhage or edema. No extra-axial masses or collections are present. The bony calvarium is intact. The visualized paranasal sinuses are unremarkable. The mastoid air cells are clear. IMPRESSION: No acute intracranial abnormality. No CT evidence of mass, acute infarct or intracranial hemorrhage. Report was called and faxed to the [place] [facility] at 6:44 p.m., by ghanshyam. Dictated by: Dictated on workstation # [id number]
[2021-11-04 18:47] LABS: AMPHETAMINE SCREEN, URINE NEGATIVE (NEGATIVE); BARBITURATE SCREEN URINE NEGATIVE (NEGATIVE); BENZODIAZEPINES SCREEN URINE NEGATIVE (NEGATIVE); CANNABINOID SCREEN, URINE NEGATIVE (NEGATIVE); COCAINE SCREEN URINE NEGATIVE (NEGATIVE); METHADONE STAT NEGATIVE (NEGATIVE); OPIATE SCREEN URINE NEGATIVE (NEGATIVE); TRICYCLIC ANTIDEPRESSANTS SCRE NEGATIVE (NEGATIVE)
[2021-11-04 18:48] LABS: OXYCODONE STAT NEGATIVE (NEGATIVE); PROPOXYPHENE STAT NEGATIVE (NEGATIVE)
[2021-11-04 18:50] LABS: AMORPHOUS SEDIMENT,UR FEW AMOR PHOSPHATE /LPF; BACTERIA,URINE TRACE /HPF; WBC,URINE 0-2 /HPF
[2021-11-04 19:25] VITALS: BP 112/77
== END 2021-11-04 19:25 | disposition home or self-care (01) ==
LOC: EDUNIT# 17:28 → ER 17:30
DX: F41.9 Anxiety disorder, unspecified (principal); R20.2 Paresthesia of skin; Z87.891 Personal history of nicotine dependence; Z86.16 Personal history of COVID-19; Z28.310 Unvaccinated for COVID-19
CPT/HCPCS: 36415; 70450; 71045; 80048; 80306; 81000; 84443; 85025; 85379

== ENCOUNTER 2022-05-01 17:48 | Emergency (ER) | payer BC ==
[~2022-05-01] VITALS: Ht 185.5 cm; Wt 71.0 kg
[2022-05-01 18:25] VITALS: BP 126/86
--- NOTE | 2022-05-01 19:41 | ED Upper Extremity ---
General Chief Complaint: Laceration Stated Complaint: LEFT PINKIE FINGER LAC Nursing Triage Note: PT AMB TO ED BY POV WITH C/O PUNCTURE TO L JERRY. PT REPORTS HE WAS LOST CONTROL OF AN EXACTO KNIFE WITH A FRESH BLADE APPROX 30 MIN VP OF PRODUCT. NEUROMUSCULAR FUNCTION INTACT. UTD ON TETANUS. Source: patient Exam Limitations: no limitations History of Present Illness Date Seen by Provider: May 01, 2022 Time Seen by Provider: 19:16 Initial Comments 37-year-old male presents with laceration to distal aspect of left fifth digit. Allergies and Home Medications Allergies Coded Allergies: No Known Allergies (Unverified Allergy, Mild, 07/01/09) Patient Home Medication List Amoxicillin (Amoxicillin) 500 Mg Capsule, 500 MG PO TID Prescribed by: BRAXTON GONSALVES on 10/29/18 0303 Amoxicillin/Potassium Clav (Augmentin 875-125 Tablet) 1 Each Tablet, 1 EACH PO BID Prescribed by: BRAXTON GONSALVES on 02/08/172210 Cephalexin Monohydrate (Cephalexin) 500 Mg Capsule, 1 EACH PO QID Prescribed by: DWAYNE DUNCAN MD on 07/02/09 022 Diclofenac Sodium (Diclofenac Sodium) 75 Mg Tablet.dr, 75 MG PO BID Prescribed by: Rafael Mckenzie on 10/24/212000 Hydrocodone Bit/Acetaminophen (Lortab 5-500 Tablet) 1 Each Tablet, 1 EACH PO Q 4 - 6 HR PRN Prescribed by: DWAYNE DUCNAN MD on 07/01/09 235 Hydrocodone Bit/Acetaminophen (Lortab 5 Mg Tablet) 1 Each Tablet, 1 EACH PO Q6H PRN for BREAKTHROUGH PAIN Prescribed by: BRAXTON GONSALVES on 02/08/172213 Past Wajpift-Ldtarf-Uhvbbl Hx Patient Social History Tobacco Use?: Yes Tobacco type used: Cigarettes Smoking Status: Current Everyday Smoker Use of E-Cig and/or Vaping dev: No Substance use?: No Alcohol Use?: No Pt feels they are or have been: No Immunizations Up To Date Tetanus Booster (TDap): Less than 5yrs PED Vaccines UTD: Yes Influenza Vaccine Up-to-Date: No; Not Current First/Initial COVID19 Vaccinat: DENIES Seasonal Allergies Seasonal Allergies: No Past Medical History Surgery/Hospitalization HX: ANXIETY Surgeries: No Respiratory: No Cardiac: No Neurological: No Genitourinary: No Gastrointestinal: No Musculoskeletal: No Endocrine: No HEENT: No Cancer: No Psychosocial: No Integumentary: No Blood Disorders: No Physical Exam Vital Signs Vital Signs - First Documented 05/01/22 18:25 Temp 35.8 Pulse 71 Resp 16 B/P (MAP) 126/86 (99) Pulse Ox 99 O2 Delivery Room Air Capillary Refill : Less Than 3 Seconds Height, Weight, BMI Height: 6'1.00" Weight: 140lbs. 0oz. 63.732981pl; 20.00 BMI Method:Stated Procedures/Interventions Wound Location: Upper Extremities Other Wound Location Left fifth distal finger Wound Length (cm): 1 Wound's Depth, Shape: linear Wound Explored: clean Irrigated w/ Saline (ccs): 10 Anesthesia: 1% Lidocaine Volume Anesthetic (ccs): 5 Wound Debrided: minimal Suture: Ethlion Suture Size: 3-0 Number of Sutures: 2 Progress/Results/Core Measures Results/Orders Vital Signs/I&O 05/01/22 18:25 Temp 35.8 Pulse 71 Resp 16 B/P (MAP) 126/86 (99) Pulse Ox 99 O2 Delivery Room Air Blood Pressure Mean: 99 Departure Impression Primary Impression: Laceration Disposition: 01 HOME, SELF-CARE Condition: Stable Departure-Patient Inst. Referrals: GIANCARLO SPARKS APRN (PCP/Family) Primary Care Physician Patient Instructions: Laceration Repair With Stitches (DC) Add. Discharge Instructions: Return in 7 days to have your sutures removed. Monitor for signs of infection, redness, swelling, yellowgreen, odorous discharge. Return for any signs of infection, or any other new, concerning, worsening symptoms. Follow-up with your primary care provider. All discharge instructions reviewed with patient and/or family. Voiced understanding. MAYE BRO APRN May 01, 2022 19:41
== END 2022-05-01 19:50 | disposition home or self-care (01) ==
LOC: EDUNIT# 17:48 → ER 17:52
DX: S61.217A Laceration without foreign body of left little finger without damage to nail, initial encounter (principal); F17.210 Nicotine dependence, cigarettes, uncomplicated; Z28.310 Unvaccinated for COVID-19; W26.0XXA Contact with knife, initial encounter
CPT/HCPCS: 12011

== ENCOUNTER → 2022-07-07 | Outpatient (CLI) | payer OTHER, BC | LOC: ORTHO 09:15 | PROVIDERS: ATTEND Orthopaedic Surgery | DX: S92.411A Displaced fracture of proximal phalanx of right great toe, initial encounter for closed fracture (principal); X58.XXXA Exposure to other specified factors, initial encounter | CPT/HCPCS: 99203 ==

== ENCOUNTER → 2022-07-20 | Outpatient (CLI) | payer OTHER, BC ==
--- NOTE | 2022-07-20 10:19 | Diagnostic Imaging Report ---
INDICATION: Dropped heavy object on the great toe. Time of Exam: 8:33 AM Three views of the right great toe demonstrate a fracture involving the distal aspect of the proximal phalanx of the great toe. No significant displacement or angulation is seen. The distal phalanx is intact. 1st metatarsal is intact. IMPRESSION: Nondisplaced fracture of the distal aspect of the proximal phalanx, great toe. Dictated by: Dictated on workstation # [id number]
== END ==
LOC: ORTHO 08:17
PROVIDERS: ATTEND Orthopaedic Surgery
DX: S92.411D Displaced fracture of proximal phalanx of right great toe, subsequent encounter for fracture with routine healing (principal); X58.XXXD Exposure to other specified factors, subsequent encounter
CPT/HCPCS: 73660; G0463; 99213

== ENCOUNTER → 2022-08-10 | Outpatient (CLI) | payer OTHER, BC ==
--- NOTE | 2022-08-10 09:00 | Diagnostic Imaging Report ---
INDICATION: Right great toe fracture AP, oblique and lateral views of right great toe are obtained with comparison made to study of 07/20/2022. There is continued visibility of fracture line along the distal diaphysis of the 1st proximal phalanx. There is continued mild angulation at fracture site without significant bridging callus. There is mild irregularity of the articular surface of the proximal phalanx as well. Otherwise, no new fracture or malalignment is identified. IMPRESSION: No significant bridging callus is seen about the mildly angulated distal shaft fracture of 1st right proximal phalanx. There is mild irregularity of the articular surface as well. Dictated by: Dictated on workstation # [id number]
== END ==
LOC: ORTHO 08:29
PROVIDERS: ATTEND Orthopaedic Surgery
DX: S92.414A Nondisplaced fracture of proximal phalanx of right great toe, initial encounter for closed fracture (principal); X58.XXXA Exposure to other specified factors, initial encounter
CPT/HCPCS: 73660; G0463; 99213

== ENCOUNTER → 2022-09-13 | Outpatient (CLI) | payer OTHER, BC ==
--- NOTE | 2022-09-13 14:10 | Diagnostic Imaging Report ---
TOE(S) INDICATION: Fracture follow-up COMPARISON: 08/10/2022 TECHNIQUE: 3 views of the right great toe FINDINGS: The simple transverse fracture involving the distal diaphysis of the great toe proximal phalanx maintains near anatomic alignment. A small amount of healing callus has developed along its lateral aspect. However, there is no bridging along the medial aspect of the fracture. No new fracture. IMPRESSION: Partial but incomplete healing of the great toe proximal phalanx fracture is now noted. Dictated by: Dictated on workstation # [id number]
== END ==
LOC: ORTHO 08:14
PROVIDERS: ATTEND Orthopaedic Surgery
DX: S92.414D Nondisplaced fracture of proximal phalanx of right great toe, subsequent encounter for fracture with routine healing (principal); X58.XXXD Exposure to other specified factors, subsequent encounter
CPT/HCPCS: 73660

== ENCOUNTER → 2022-11-01 | Outpatient (CLI) | payer OTHER, BC ==
--- NOTE | 2022-11-01 12:14 | Diagnostic Imaging Report ---
TOE(S) INDICATION: Fracture follow-up. COMPARISON: 09/13/2022. TECHNIQUE: Three views of the right great toe. FINDINGS: The simple transverse fracture involving the first proximal phalanx maintains anatomic alignment. There is increasing central osseous bridging of the fracture. No periosteal callus. IMPRESSION: First proximal phalanx fracture maintains stable alignment with continued healing. Dictated by: Dictated on workstation # [id number]
== END ==
LOC: ORTHO 08:33
PROVIDERS: ATTEND Orthopaedic Surgery
DX: S92.414D Nondisplaced fracture of proximal phalanx of right great toe, subsequent encounter for fracture with routine healing (principal); X58.XXXD Exposure to other specified factors, subsequent encounter
CPT/HCPCS: 73660; G0463; 99213